=== PATIENT | female | born 1955 | race Hispanic/Latino ===

== ENCOUNTER 2016-09-13 07:34 | Day surgery (SDC) | payer OTHER ==
[2016-04-26 01:08] VITALS: BMI 26.3
[2016-09-13] MEDS ORDERED: Sodium Chloride 0.9% 1,000 ML IV SCH (08:15)
[2016-09-13] MEDS ORDERED: Propofol 10 mg/ml Inj (20 ML) ONE (09:47)
[2016-09-13 11:00] VITALS: BP 117/67; PULSE 59; RESP 18; TEMP 98.1; O2SAT 98
== END 2016-09-13 11:34 | disposition home or self-care (01) ==
LOC: ENDO 07:34
PROVIDERS: ATTEND Specialist
DX: K31.7 Polyp of stomach and duodenum (principal); K29.70 Gastritis, unspecified, without bleeding; K21.9 Gastro-esophageal reflux disease without esophagitis; I10 Essential (primary) hypertension; M48.02 Spinal stenosis, cervical region; Z86.73 Personal history of transient ischemic attack (TIA), and cerebral infarction without residual deficits
CPT/HCPCS: 43239; 88305; 88342; J2001; J2704; J7040 ×2

== ENCOUNTER 2017-06-20 15:26 | Emergency (ER) | payer OTHER ==
[2017-06-20 15:26] VITALS: BMI 26.3
--- NOTE | 2017-06-20 16:33 | ED PDOC ---
Arrival/HPI - General Chief Complaint: Upper Extremity Problem/Injury Time Seen by Provider: 06/20/17 15:35 Historian: Patient - History of Present Illness Narrative History of Present Illness (Text): 06/20/17 18:06 61yr old female with right sided shoulder pain s/p injury 2 days ago. pt states that 2 days ago she was lifting a heavy object and developed pain in the anterior aspect of the right shoulder. pt states she has pain with range of motion of the shoulder. pt states pain radiates into the upper arm. pt denies numbness weakness or tingling in the extremities. Patient denies fevers or chills. Patient denies neck or back pain. Patient states she has been taking tramadol and muscle relaxer without improvement. No other complaints Past Medical History - Provider Review Nursing Documentation Reviewed: Yes - Travel History Have you recently traveled outside [place] w/in the past 3 mons?: No - Infectious Disease Hx of Infectious Diseases: None - Tetanus Immunization Tetanus Immunization: Unknown - Reproductive Menopause: Yes - Cardiac Hx Pacemaker: No - Pulmonary Hx Respiratory Disorders: No - Neurological Hx Paralysis: No - HEENT Hx HEENT Disorder: Yes (glasses/ Hearing loss bilateral) Hx Macular Degeneration: Yes - Renal Hx Renal Disorder: No - Endocrine/Metabolic Hx Endocrine Disorders: No - Hematological/Oncological Hx Blood Transfusions: No - Integumentary Hx Dermatological Disorder: No - Musculoskeletal/Rheumatological Hx Musculoskeletal Disorders: Yes - Gastrointestinal Hx Gastroesophageal Reflux: Yes Other/Comment: irital bowel syndrome - Genitourinary/Gynecological Hx Genitourinary Disorders: No - Psychiatric Hx Emotional Abuse: No Hx Physical Abuse: No Hx Substance Use: No - Surgical History Hx Appendectomy: Yes - Anesthesia Hx Anesthesia Reactions: No Hx Malignant Hyperthermia: No - Suicidal Assessment Feels Threatened In Home Enviroment: No Family/Social History - Physician Review Nursing Documentation Reviewed: Yes Family/Social History: Unknown Family HX Smoking Status: Never Smoked Hx Alcohol Use: Yes (OCCASIONAL RED WINE) Hx Substance Use: No Hx Substance Use Treatment: No Allergies/Home Meds Allergies/Adverse Reactions: Allergies No Known Allergies Allergy (Verified 04/26/16 01:49) Home Medications: Home Meds Medication Instructions Recorded Confirmed Flaxseed Oil 2 tab PO DAILY 02/18/13 09/13/16 Topiramate [Topamax] 25 mg PO DAILY 01/10/16 09/13/16 Aspirin [Ecotrin] 81 mg PO DAILY 01/19/16 09/13/16 Calcium/Vitamin D [Oyster Shell 1 tab PO BID 01/19/16 09/13/16 Calcium/Vitamin D 500 mg-200 IU] Clopidogrel [Plavix] 75 mg PO DAILY 01/19/16 09/13/16 Multivitamin [One Daily] 1 tab PO DAILY 01/19/16 09/13/16 Pravastatin Sodium [Pravachol] 40 mg PO DAILY 01/19/16 04/26/16 Valsartan/Hydrochlorothiazide 1 tab PO DAILY 01/19/16 09/13/16 [Valsartan and Hydrochlorothiazide 12.5 mg-320] Vit C/E/Zn/Coppr/Lutein/Zeaxan 2 cap PO DAILY 04/26/16 09/13/16 [Preservision Areds 2 Softgel] Chlorzoxazone [Lorzone] 500 mg PO TID PRN 09/07/16 09/13/16 Cholecalciferol (Vitamin D3) 2,000 unit PO DAILY 09/07/16 09/13/16 [Vitamin D3] traMADol [Ultram] 50 mg PO DAILY PRN 09/07/16 09/13/16 Hydrocortisone 2.5% (Rectal) 1 appl RC BID 09/13/16 09/13/16 [Anusol-HC] Review of Systems - Review of Systems Constitutional: absent: Fatigue, Fevers Respiratory: absent: SOB, Cough Cardiovascular: absent: Chest Pain, Palpitations Gastrointestinal: absent: Abdominal Pain, Nausea, Vomiting Musculoskeletal: Arthralgias. absent: Back Pain, Neck Pain Skin: absent: Rash, Pruritis Neurological: absent: Headache, Dizziness Psychiatric: absent: Anxiety, Depression Physical Exam Vital Signs Reviewed: Yes Vital Signs Temp Pulse Resp BP Pulse Ox 06/20/17 15:39 98.5 F 76 18 119/74 96 Temperature: Afebrile Blood Pressure: Normal Pulse: Regular Respiratory Rate: Normal Appearance: Positive for: Well-Appearing, Non-Toxic, Comfortable Pain Distress: None Mental Status: Positive for: Alert and Oriented X 3 - Systems Exam Head: Present: Atraumatic Neck: Present: Normal Range of Motion. No: MIDLINE TENDERNESS, Paraspinal Tenderness Respiratory/Chest: Present: Clear to Auscultation, Good Air Exchange. No: Respiratory Distress, Accessory Muscle Use Cardiovascular: Present: Regular Rate and Rhythm, Normal S1, S2. No: Murmurs Back: Present: Normal Inspection Upper Extremity: Present: Normal Inspection, NORMAL PULSES, Tenderness (right shoulder; + ttp over anterior aspect of shoulder; limited abduction with pain; sensation and distal pulses intact. cap refill <2. no erythema, no edema, no ecchymosis; full rom of hand,wrist, elbow. ), Neurovascularly Intact, Capillary Refill < 2s. No: Normal ROM, Swelling, Erythema, Deformity Neurological: Present: GCS=15, Speech Normal Skin: Present: Warm, Dry, Normal Color. No: Rashes Psychiatric: Present: Alert, Oriented x 3 Medical Decision Making ED Course and Treatment: 06/20/17 18:09 Patient nontoxic well-appearing in no distress with stable vital signs X-rays of the right shoulder; FINDINGS: BONES: There is no acute displaced fracture or bone destruction. Bone alignment is normal. There is diffuse bone demineralization. JOINTS: There is mild degenerative osteoarthrosis in the acromioclavicular and glenohumeral joints. SOFT TISSUES: Normal. OTHER FINDINGS: None. IMPRESSION: No acute fracture or dislocation. toradol im valium PO Patient reassessment: Patient feeling better after medications. Vital signs are stable. I discussed all results with patient advised to followup with the orthopedist for the next 2 days. Return if symptoms worsen persist or new symptoms develop i advised the patient that although the xrays show no fracture; there is still a possibility for ligamentous or tendon injury the patient must see the orthopedist for further evaluation. Patient verbalizes understanding of discharge instructions and need for immediate followup. all aspects of this case were discussed the attending of record. Impression: shoulder pain tylenol every 4 hours as needed for pain valium; 1 tablet every 8 hours as needed for muscle spasms; may cause drowsiness Rest, ice, compression, elevation Followup with the orthopedist within the next 2 days Followup with primary care physician within the next 2 days Return if any other concerning symptoms develop - RAD Interpretation Radiology Orders: 06/20/17 17:07 SHOULDER RIGHT [RAD] Stat - Medication Orders Current Medication Orders: Discontinued Medications Diazepam (Valium) 2 mg PO ONCE ONE PRN Reason: Protocol Stop: 06/20/17 16:22 Last Admin: 06/20/17 16:54 Dose: 2 mg Ketorolac Tromethamine (Toradol) 60 mg IM STAT STA Stop: 06/20/17 16:22 Last Admin: 06/20/17 16:55 Dose: 60 mg MAR Pain Assessment Document 06/20/17 16:55 MS (Rec: 06/20/17 16:56 MS [id number]) Pain Reassessment Is this a pain reassessment? No Sleep Is patient sleeping during reassessment? No Presence of Pain Presence of Pain Yes Pain Scale Used Pain Scale Used Numeric Location Left, Right or Bilateral Right Pain Location Body Site Shoulder Description Description Intermittent Intensity of Pain at present 7 Pain Behavior Grasping Site IM Administration Charges Document 06/20/17 16:55 MS (Rec: 06/20/17 16:56 MS [id number]) Injection Site MAR Injection Site Right Deltoid Charges for Administration # of IM Administrations 1 Disposition/Present on Arrival - Present on Arrival Any Indicators Present on Arrival: No History of DVT/PE: No History of Uncontrolled Diabetes: No Urinary Catheter: No History of Decub. Ulcer: No History Surgical Site Infection Following: None - Disposition Have Diagnosis and Disposition been Completed?: Yes Diagnosis: Shoulder pain Disposition: HOME/ ROUTINE Disposition Time: 19:24 Patient Plan: Discharge Condition: GOOD Discharge Instructions (ExitCare): Shoulder Pain (DC) Additional Instructions: tylenol every 4 hours as needed for pain valium; 1 tablet every 8 hours as needed for muscle spasms; may cause drowsiness Rest, ice, compression, elevation Followup with the orthopedist within the next 2 days Followup with primary care physician within the next 2 days Return if any other concerning symptoms develop Prescriptions: diaZEpam [Valium] 2 mg PO Q8H PRN #6 tab PRN Reason: muscle spasms Referrals: Mikel Desai MD [Primary Care Provider] - Follow up with primary Tito De La Cruz DO [Staff Provider] - Follow up with primary Forms: [employer] (I[place]ic), WORK NOTE
--- NOTE | 2017-06-20 18:30 | RAD ---
PROCEDURE: Radiographs of the Right Shoulder HISTORY: right shoulder pain COMPARISON: No prior. FINDINGS: BONES: There is no acute displaced fracture or bone destruction. Bone alignment is normal. There is diffuse bone demineralization. JOINTS: There is mild degenerative osteoarthrosis in the acromioclavicular and glenohumeral joints. SOFT TISSUES: Normal. OTHER FINDINGS: None. IMPRESSION: No acute fracture or dislocation.
[2017-06-20 19:57] VITALS: RESP 16; O2SAT 99
[2017-06-20 20:02] VITALS: BP 115/76; PULSE 72; TEMP 97.9
== END 2017-06-20 19:40 | disposition home or self-care (01) ==
LOC: ED 15:26
DX: M25.511 Pain in right shoulder (principal)
CPT/HCPCS: 73030; 96372; 99283; J1885

== ENCOUNTER 2018-02-06 06:30 | Day surgery (SDC) | payer OTHER ==
[2018-02-06] MEDS ORDERED: Propofol 10 mg/ml Inj (20 ML) ONE (08:04)
[2018-02-06] MEDS ORDERED: Etomidate 20 mg/10ml Inj IV ONE (08:04)
[2018-02-06] MEDS ORDERED: Sodium Chloride 0.9% 1,000 ML IV SCH (08:30)
[2018-02-06 09:03] VITALS: O2SAT 98
[2018-02-06 09:33] VITALS: BP 105/65; PULSE 70; RESP 16; TEMP 97.8
== END 2018-02-06 10:00 | disposition home or self-care (01) ==
LOC: ENDO 06:30
PROVIDERS: ATTEND Specialist
DX: Z12.11 Encounter for screening for malignant neoplasm of colon (principal); K62.1 Rectal polyp; K64.8 Other hemorrhoids; I10 Essential (primary) hypertension; Z86.010 Personal history of colon polyps
CPT/HCPCS: 45380; 88305; J2001; J2704; J7030; J7040

== ENCOUNTER 2018-04-06 08:30 | Outpatient (CLI) | payer OTHER | END 2018-04-06 08:31 | disposition home or self-care (01) | LOC: LAB 08:30 ==

== ENCOUNTER 2018-05-29 15:59 | Outpatient (CLI) | payer OTHER | END 2018-05-29 16:00 | disposition home or self-care (01) | LOC: CARDIO 15:59 ==